=== PATIENT | male | born 1955 | race Caucasian/White ===

== ENCOUNTER 2019-05-15 22:13 | Inpatient (IN) ==
[2019-05-16] MEDS ORDERED: Naloxone 0.4 MG/ML INJ IVP PRN (02:37)
[2019-05-16] MEDS ORDERED: *HR* LORazepam 2 MG/ML VIAL IVP PRN (02:37)
[2019-05-16] MEDS ORDERED: 0.9 % Sodium Chloride 1,000 ML IVC SCH (02:45)
[2019-05-16 02:59] LABS: Basophils % 0.3 %; Eosinophils % 0.6 %; Hemoglobin 9.3 g/dL (12.9-16.9); Lymphocytes % 16.3 %; Mean Corpuscular HGB Conc 34.4 g/dL (31.6-35.5); Mean Corpuscular Hemoglobin 28.8 pg (28.0-33.3); Mean Corpuscular Volume 83.6 fL (83.0-100.0); Mean Platelet Volume 10.9 fL (9.4-12.4); Monocytes # 0.9 K/mcL (0.0-1.3); Monocytes % 14.7 %; Neutrophils # 4.2 K/mcL (1.6-8.9); Platelet Count 158 K/mcL (140-400); Red Blood Count 3.23 M/mcL (4.19-5.50); Red Cell Distribution Width 14.7 % (11.5-14.5); Segmented Neutrophils % 67.1 %; White Blood Count 6.3 K/mcL (4.3-11.1)
[2019-05-16 03:19] LABS: Albumin 3.1 g/dL (3.5-5.7); Albumin/Globulin Ratio 1.2 (1.1-2.2); Bilirubin,Total 0.3 mg/dL (0.3-1.0); Calcium 6.7 mg/dL (8.6-10.3); Globulin 2.6 g/dL (2.4-3.5); Magnesium 2.1 mg/dL (1.6-2.6); Phosphorous 5.8 mg/dL (2.7-4.5); Potassium 4.1 mEq/L (3.5-5.1); Total Protein 5.7 g/dL (6.4-8.9)
--- NOTE | 2019-05-16 09:13 | Internal Med History&Physical ---
Date of Encounter: 05/16/19 Time of Encounter: 08:54 Internal Medicine - H&P: HPI Chief complaint: Encephalopathy Admitted From: Home Plans for Post Hospital Care: Home History of present illness: Mr. Pickett is a 63 year old male with hx of past alcoholism and CKD (stage III?) who presents as a transfer from [facility] with encephalopathy and acute renal failure. Most of the history is gathered from chart review and patient - patient's sister who brought patient to the hospital could not be reached. Apparently patient has been working outside a lot in the hot sun and said he passed out at home and had several falls thereafter. Does not remember the falls. Has a hematoma on his head. Denies n/v or diarrhea/constipation. Questionable history of alcohol abuse but patient denies this. Also has been using a lot of Excedrin for chronic back pain and experiencing urinary hesitancy and frequency lately. Patient's sister was concerned about patient's falls and thought patient seemed confused so brought him to the ED at [facility]. At the ED, VSS. Cr 13.13. BUN 145. UA with moderate amount of blood but 0-2 RBCs and without evidence of infection or casts. CT head w/o acute changes. CT abd/pelvis with BL nonobstructing renal calculi and fecalith within appendix with inflammation suggesting early acute appendicitis (notably, no leukocytosis and non-tender abdomen). Past Med Surg Social Fam HX - Past Medical History Medical history: arthritis, GERD, hypertension Additional medical history: diverticulitis Psychiatric history: no psych history - Past Surgical History Additional surgical history: colonoscopy positive for polyps - Social History Smoking Status: Current some day smoker Smokeless Tobacco Status: No Alcohol use: none Drug use: other - Family History Mother Hx Family Cardiac Disorders: Yes Father Hx Family Cardiac Disorders: Yes Hx Family Neurologic Disorders: Yes (stroke) Internal Medicine - H&P: Meds Allergy/AdvReac Type Severity Reaction Status Date / Time No Known Allergies Allergy Verified 05/16/19 02:34 All Systems PM: A 10-system review of systems was performed and is negative for pertinent findings except as documented above in the HPI. Review of systems: General: Fevers / Chills / Weight loss / Night sweats Eyes: Blurry Vision / Change in Vision HENT: Ear Pain / Ear Drainage / Rhinorrhea / Throat Pain / Lymphadenopathy Cardiovascular: Chest Pain / Palpatations / Orthopnea / WINCHESTER / Weight gain Lungs: Dyspnea / Wheezing / Cough / Sputum production / Pleurisy Abdomen: Abdomen pain / Abdominal distention / Nausea / Vomiting / Diarrhea / Const : Dysuria / Urinary Frequency / Urinary Urgency / Hematuria Extremities: LE edema / Ext pain / Ext erythema Skin: Rashes / Abrasions / Contusions Psych: Hallucinations / Anxiety / Depression Neuro: Weakness / Numbness / Tingling / Facial Droop / Dysphagia - Constitutional Vitals: Temp Pulse Resp BP Pulse Ox 98.6 F 67 16 175/75 95 05/16/19 07:49 05/16/19 07:49 05/16/19 07:49 05/16/19 07:49 05/16/19 07:49 Exam: General: Ill-appearing and in no acute distress HEENT: No erythema of posterior pharynx. No exudates. Lymphatics: No mandibular or cervical lymphadenopathy Cardiovascular: RRR. No murmurs. No chest wall tenderness. Lungs: Clear to auscelltation bilaterally. Regular chest rise. Abdomen: Non-tender. No rebound or gaurding. Nl bowel sounds. Extremities: No edema. 2+ pulses radial and pedal pulses Skin: No rahses, abrasions, or contusions. Nl cap refill. Psych: Poor attention but A&Ox3 once aroused Neuro: egg tester II-XII intact. 5/5 strength. Sensation to light touch and pinprick intact. asterixis present Internal Med - H&P Results - Labs CBC & Chem 7: 05/16/19 02:49 05/16/19 02:49 Labs: Short CBC 05/16/19 Range/Units 02:49 WBC 6.3 (4.3-11.1) K/mcL Hgb 9.3 L (12.9-16.9) g/dL Hct 27.0 L (37.5-50.1) % Plt Count 158 (140-400) K/mcL Neutrophils # 4.2 (1.6-8.9) K/mcL BMP 05/16/19 02:49 Sodium 139 Potassium 4.1 Chloride 96 L Carbon Dioxide 24 BUN 123 H Creatinine 10.98 H Glucose 101 Calcium 6.7 L Cardiac Enzymes 05/16/19 Range/Units 02:49 Troponin I 0.08 H* (< 0.04) ng/mL Liver Function 05/16/19 Range/Units 02:49 Total Bilirubin 0.3 (0.3-1.0) mg/dL AST 14 (13-39) Units/L ALT 50 (7-52) Units/L Alkaline Phosphatase 61 (34-104) Units/L Albumin 3.1 L (3.5-5.7) g/dL - Assessment and Plan (1) Acute renal failure Current Visit: Yes Status: Acute Assessment and plan: Patient with hx of CKD (stage III?) presents with encephalopathy and acute renal failure in the setting of stable vitals, asterixis on physical exam, Cr of 13 that improved to 10 after 2L IVF, UA with moderate amount of blood but 0-2 RBCs and without evidence of infection or casts, and CT abd/pelvis with BL nonobstructing renal calculi and fecalith within appendix with inflammation suggesting early acute appendicitis (notably, no leukocytosis and non-tender abdomen). -Acute renal failure likely multifactorial: May have a prerenal component given has been outside working in the hot sun May have been intrarenal component given the history of Excedrin use/abuse. Also blood but no RBCs suggesting rhabdo - will check CK May have a postrenal component given he is endorsing BPH symptoms. Could have also passed an obstructing stone? Non-obst stones present on CT PLAN: - Continue IV hydration with IV NS@100ml/hr - Wan placed - close monitoring of urine output - Consult to nephrology - Repeat UA looking for casts - Mild confusion but no other indication for urgent HD Qualifiers: Acute renal failure type: unspecified Qualified Code(s): N17.9 - Acute kidney failure, unspecified (2) CKD (chronic kidney disease) stage 3, GFR 30-59 ml/min Current Visit: Yes Status: Acute Assessment and plan: Unclear baseline. Creatinine from 2016 1.5 which should be CKD stage III for this patient. (3) Encephalopathy Current Visit: Yes Status: Acute Assessment and plan: In the setting of uremia with BUN on admission 140 and asterixis on physical exam. - Treat acute renal failure per above (4) Frequent falls Current Visit: Yes Status: Acute Assessment and plan: Presumably secondary to contusion from uremia. - PT eval (5) Alcoholism Current Visit: Yes Status: Acute Assessment and plan: Unclear if this is a current issue. Patient says that he abuse alcohol the past but no alcohol abuse currently. - ROSI (6) Abnormal CT of the abdomen Current Visit: Yes Status: Acute Assessment and plan: Evidence of fecalith within appendix with inflammation suggesting early acute appendicitis on CT abd/pelvis (notably, no leukocytosis and non-tender abdomen). - Will run this by general surgery to see their level of concern for an acute process
[2019-05-16 09:53] LABS: Troponin I 0.08 ng/mL (< 0.04)
--- NOTE | 2019-05-16 10:33 | Nephrology Consult Note ---
Date of Encounter: 05/16/19 Time of Encounter: 10:00 Assessment and Plan (1) ERI (acute kidney injury) Current Visit: Yes Status: Acute Suspecting postrenal plus the NSAIDs he was taking and prerenal etiologies for the ERI from his outdoor work recently. Recommend 0.45% IVF at 100mL/hr. After the granados was placed his now making a large post-obstructive autodiuresis. Half-normal NS is better to prevent hypernatremia in such pt. He likely needs a granados catheter. I do not have immediate access to the CT abd that was performed at [facility], but if there was hydronephrosis, then he may also need a Urology consult. 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 He looks dry and primarily needs a granados to relieve the (probable) obstruction. This complex patient required a very high degree evaluation and management, as well as medical decision-making. Thank you for having consulted the [facility], and I will follow with you. Discussed with the hospitalist. (2) Alcoholism Current Visit: Yes Status: Acute (3) Frequent falls Current Visit: Yes Status: Acute (4) Urinary retention Current Visit: Yes Status: Acute (5) Anemia Current Visit: Yes Status: Acute Goal Hgb is 10-11: will monitor for any need of IV iron and /or EPO. Transfusion parameters as per primary Qualifiers: Anemia type: unspecified type Qualified Code(s): D64.9 - Anemia, unsp ecified (6) Elevated CK Current Visit: Yes Status: Acute in the 900s and will need to be trended. Less likely to be sole cause of an elevated SCr. Nevertheless, the goal is the same: continue IVF. History of Present Illness - Reason for Consult Consult date: 05/16/19 Acute Kidney Injury Requesting physician: Girma Ramirez - Chief Complaint ERI - History of Present Illness Pleasant 63-year-old male with a past medical history of hypertension, and reportedly no previous kidney disease who presented with a very elevated creatinine. Nephrology was consulted for management. The patient transferred in from an outside hospital, and once a Granados catheter was placed, per report, he has made significant urine output. He told me that over the last 2 weeks, especially the last week, he has had more difficulty with urination, which he described as being unable to empty his bladder. He affirmed taking [id number] NSAIDs, and working out in the heat doing yard work over the last few weeks. He said that he has had frequent falls, but he does not recall these falls, and he also drinks beer. No family members were present during my interview/exam. He did not report having nausea, vomiting, or diarrhea. He did not report previous renal stones or gout. He did not report other hospitalizations or IV contrast exposure, and he said that he has had a large palpable bump on his forehead for many years. He did not affirm rash, LUNA, dizziness, CP. Past Med Surg Social Fam HX - Past Medical History Medical history: arthritis, GERD, hypertension Additional medical history: diverticulitis Psychiatric history: no psych history - Past Surgical History Additional surgical history: colonoscopy positive for polyps - Social History Smoking Status: Current some day smoker Smokeless Tobacco Status: No Alcohol use: none Drug use: other - Family History Mother Hx Family Cardiac Disorders: Yes Father Hx Family Cardiac Disorders: Yes Hx Family Neurologic Disorders: Yes (stroke) Medications and Allergies No Known Home Drugs 05/16/19 [History] Allergy/AdvReac Type Severity Reaction Status Date / Time No Known Allergies Allergy Verified 05/16/19 10:36 Review of Systems All Systems: reviewed and no additional remarkable complaints except as stated Exam - Vital Signs Vital signs: Initial Vital Signs Pulse Ox 97 05/16/19 01:12 Vital Signs - Last 8 Hours Temp Pulse Resp BP Pulse Ox 05/16/19 07:49 98.6 F 67 16 175/75 95 05/16/19 03:42 98 F 72 17 184/76 94 Intake and Output 05/15/19 05/16/19 05/16/19 23:59 07:59 15:59 Output Total 900 / 900 Balance -900 / -900 Output: Urine 450 / 450 Catheter 450 / 450 Other: Weight 67.3 kg Patient Weight 05/16/19 23:59 Weight 67.3 kg - General Appearance General appearance: well-developed, appears started age, frail EENT: ATNC, PERRL, mucous membranes dry Neck: no JVD, supple Respiratory: no kyphosis, clear Cardiology: no murmurs, no edema, regular rate, regular rhythm, normal S1, normal S2 Gastrointestinal: normoactive bowel sounds, no tenderness, no guarding Integumentary: no rash, warm and dry Neurologic: no focal deficit, no asterixis, alert and oriented x3 Musculoskeletal: no erythema, no cyanosis Psychiatric: mood/affect appropriate, cooperative Results - Lab Results 05/16/19 02:49 05/16/19 02:49 Most recent lab results 05/16/19 02:49 Calcium 6.7 L Phosphorus 5.8 H Magnesium 2.1 Consult Discharge Plan - Plan Referrals: NONE,PCP [Primary Care Provider] -
--- NOTE | 2019-05-16 10:55 | Urology - Consult Note ---
<Berkley Block N - Last Filed: 05/16/19 10:50> Date of Encounter: 05/16/19 Time of Encounter: 10:20 - Assessment and Plan (1) Urinary retention Current Visit: Yes Status: Acute Assessment and plan: Patient is a 63-year-old male who presents the history of urinary retention. There was some initial concern for proper catheter placement secondary to decreased urine output. Patient is in acute renal failure, and urine output is now increased. Wan catheter appears to be properly positioned and sufficiently draining transparent, clear yellow urine. The primary team has initiated Flomax daily, and I explained patient will likely require an indwelling catheter for a minimum of [address] Amaya will be in to reevaluate patient later this afternoon. (2) Acute renal failure Current Visit: Yes Status: Acute Assessment and plan: Patient is a 63-year-old male who presents with a history of acute renal failure. Initial serum creatinine was 13, and it is currently 10.98. Nephrology has been consulted and suspects both prerenal and postrenal attributions. Urology recommends to continue with indwelling Wan catheter and Flomax daily. Qualifiers: Acute renal failure type: unspecified Qualified Code(s): N17.9 - Acute kidney failure, unspecified Urology CN:HPI Consult date: 05/16/19 Reason for consult Urology: Other (urinary retention) Requesting physician: Girma Ramirez History of present illness: Patient is a 63-year-old male who presents with a history of urinary retention, acute kidney injury and nonobstructive bilateral nephrolithiasis. Patient initially presented to [facility] after he experienced a syncopal episode and subsequent altered mental status. Patient sustained a hematoma to his anterior skull and was transferred to [facility] for further evaluation. Patient was found to have a markedly elevated serum creatinine of 13 as well as metabolic encephalopathy. Patient with questionable history of alcohol abuse. Patient underwent a CT of the abdomen and pelvis that was suggestive of a markedly distended bladder and nonobstructive bilateral nephrolithiasis. Currently, patient is sitting upright in bed in no apparent distress, and a Wan catheter is indwelling draining transparent, clear yellow urine into bedside bag. Patient reports no prior history of urinary retention, although, his brother is diagnosed with BPH and takes Flomax. He is not currently established with a urologist, and he denies any significant past history. He denies any known family history of prostate cancer. Patient reports he experiences occasional urinary hesitancy, weak stream and nocturia 2- 3 times per night at baseline. He denies any fever, chills, flank pain, urgency, frequency, incontinence, postvoid dribbling, dysuria or gross hematuria. Past Med Surg Social Fam HX - Past Medical History Medical history: arthritis, GERD, hypertension Additional medical history: diverticulitis Psychiatric history: no psych history - Past Surgical History Additional surgical history: colonoscopy positive for polyps - Social History Smoking Status: Current some day smoker Smokeless Tobacco Status: No Alcohol use: none Drug use: other - Family History Mother Hx Family Cardiac Disorders: Yes Father Hx Family Cardiac Disorders: Yes Hx Family Neurologic Disorders: Yes (stroke) Medications and Allergies No Known Home Drugs 05/16/19 [History] Allergy/AdvReac Type Severity Reaction Status Date / Time No Known Allergies Allergy Verified 05/16/19 10:36 Review of Systems - Constitutional no chills, no fatigue, no fever(s) - EENT Nose, mouth and throat: dizziness, no headache(s) - Cardiovascular no chest pain, no diaphoresis, no dyspnea - Respiratory no cough, no dyspnea - Gastrointestinal no abdominal pain, no nausea, no vomiting - Genitourinary change in urinary stream, difficulty urinating, nocturia, urinary hesitancy, no dysuria, no flank pain, no hematuria, no post void dribbling, no urinary frequency, no urinary incontinence, no urinary urgency - Musculoskeletal back pain, no muscle weakness - Integumentary no erythema, no rash - Neurological syncope, no confusion, no sensory deficit - Psychiatric no anxiety, no confusion - Hematologic/Lymphatic no easy bleeding, no easy bruising - Allergic/Immunologic no throat swelling, no wheezing Exam Initial Vital Signs Pulse Ox 97 05/16/19 01:12 - General physical appearance Present: no distress, no pain - Eyes Present: PERRL, normal ocular movement - ENT Present: normal nares, no congestion, decreased hearing - Neck Present: no masses, trachea midline, no lymphadenopathy - Respiratory Present: normal respiratory effort - Cardiovascular Cardiovascular exam IM: RRR - Abdomen Abdomen: Present: soft, non tender. Absent: distended - Genitourinary other (Awn catheter is indwelling and draining transparent, clear yellow urine into bedside bag.) - Integumentary Present: no rash, no abnormal pigmentation - Neurologic Present: normal coordination - Musculoskeletal Present: other (Normal posture) Urology Results - Labs 05/16/19 02:49 05/16/19 02:49 Abnormal lab results RBC 3.23 M/mcL (4.19-5.50) L 05/16/19 02:49 Hgb 9.3 g/dL (12.9-16.9) L 05/16/19 02:49 Hct 27.0 % (37.5-50.1) L 05/16/19 02:49 RDW 14.7 % (11.5-14.5) H 05/16/19 02:49 Chloride 96 mEq/L (98-107) L 05/16/19 02:49 BUN 123 mg/dL (8-23) H 05/16/19 02:49 Creatinine 10.98 mg/dL (0.70-1.30) H 05/16/19 02:49 Est GFR ( Amer) 6 (> 60) L 05/16/19 02:49 Est GFR (Non-Af Amer) 5 (> 60) L 05/16/19 02:49 Calculated Osmolality 328 (280-300) H 05/16/19 02:49 Calcium 6.7 mg/dL (8.6-10.3) L 05/16/19 02:49 Phosphorus 5.8 mg/dL (2.7-4.5) H 05/16/19 02:49 Creatine Kinase 991 Units/L (30-223) H 05/16/19 09:00 Troponin I 0.08 ng/mL (< 0.04) H* 05/16/19 09:00 Serum Total Protein 5.7 g/dL (6.4-8.9) L 05/16/19 02:49 Albumin 3.1 g/dL (3.5-5.7) L 05/16/19 02:49 Diabetes panel 05/16/19 Range/Units 02:49 Sodium 139 (136-145) mEq/L Potassium 4.1 (3.5-5.1) mEq/L Chloride 96 L (98-107) mEq/L Carbon Dioxide 24 (23-29) mEq/L BUN 123 H (8-23) mg/dL Creatinine 10.98 H (0.70-1.30) mg/dL Glucose 101 (70-105) mg/dL Calcium 6.7 L (8.6-10.3) mg/dL AST 14 (13-39) Units/L ALT 50 (7-52) Units/L Alkaline Phosphatase 61 (34-104) Units/L Albumin 3.1 L (3.5-5.7) g/dL Calcium panel 05/16/19 Range/Units 02:49 Calcium 6.7 L (8.6-10.3) mg/dL Phosphorus 5.8 H (2.7-4.5) mg/dL Albumin 3.1 L (3.5-5.7) g/dL Pituitary panel 05/16/19 Range/Units 02:49 Sodium 139 (136-145) mEq/L Potassium 4.1 (3.5-5.1) mEq/L Chloride 96 L (98-107) mEq/L Carbon Dioxide 24 (23-29) mEq/L BUN 123 H (8-23) mg/dL Creatinine 10.98 H (0.70-1.30) mg/dL Glucose 101 (70-105) mg/dL Calcium 6.7 L (8.6-10.3) mg/dL Adrenal panel 05/16/19 Range/Units 02:49 Sodium 139 (136-145) mEq/L Potassium 4.1 (3.5-5.1) mEq/L Chloride 96 L (98-107) mEq/L Carbon Dioxide 24 (23-29) mEq/L BUN 123 H (8-23) mg/dL Creatinine 10.98 H (0.70-1.30) mg/dL Glucose 101 (70-105) mg/dL Calcium 6.7 L (8.6-10.3) mg/dL Total Bilirubin 0.3 (0.3-1.0) mg/dL AST 14 (13-39) Units/L ALT 50 (7-52) Units/L Alkaline Phosphatase 61 (34-104) Units/L Albumin 3.1 L (3.5-5.7) g/dL All other labs normal. - Imaging CT scan - abdomen: image reviewed CT scan - pelvis: image reviewed Consult Discharge Plan - Plan Referrals: NONE,PCP [Primary Care Provider] - <Manuel Amaya - Last Filed: 05/16/19 13:35> Date of Encounter: 05/16/19 Urology CN:RAYMOND History of present illness: Patient was seen and examined independently. I agree with the plan as written by Berkley Block. At this point, continue with catheter drainage at this time. No indication to clamp catheter for postobstructive diuresis. We will continue to follow along closely. Serum creatinine tomorrow. Exam Initial Vital Signs Pulse Ox 97 05/16/19 01:12 Urology Results - Labs 05/16/19 02:49 05/16/19 02:49 Abnormal lab results RBC 3.23 M/mcL (4.19-5.50) L 05/16/19 02:49 Hgb 9.3 g/dL (12.9-16.9) L 05/16/19 02:49 Hct 27.0 % (37.5-50.1) L 05/16/19 02:49 RDW 14.7 % (11.5-14.5) H 05/16/19 02:49 Chloride 96 mEq/L (98-107) L 05/16/19 02:49 BUN 123 mg/dL (8-23) H 05/16/19 02:49 Creatinine 10.98 mg/dL (0.70-1.30) H 05/16/19 02:49 Est GFR ( Amer) 6 (> 60) L 05/16/19 02:49 Est GFR (Non-Af Amer) 5 (> 60) L 05/16/19 02:49 Calculated Osmolality 328 (280-300) H 05/16/19 02:49 Calcium 6.7 mg/dL (8.6-10.3) L 05/16/19 02:49 Phosphorus 5.8 mg/dL (2.7-4.5) H 05/16/19 02:49 Creatine Kinase 991 Units/L (30-223) H 05/16/19 09:00 Troponin I 0.08 ng/mL (< 0.04) H* 05/16/19 09:00 Serum Total Protein 5.7 g/dL (6.4-8.9) L 05/16/19 02:49 Albumin 3.1 g/dL (3.5-5.7) L 05/16/19 02:49 Diabetes panel 05/16/19 Range/Units 02:49 Sodium 139 (136-145) mEq/L Potassium 4.1 (3.5-5.1) mEq/L Chloride 96 L (98-107) mEq/L Carbon Dioxide 24 (23-29) mEq/L BUN 123 H (8-23) mg/dL Creatinine 10.98 H (0.70-1.30) mg/dL Glucose 101 (70-105) mg/dL Calcium 6.7 L (8.6-10.3) mg/dL AST 14 (13-39) Units/L ALT 50 (7-52) Units/L Alkaline Phosphatase 61 (34-104) Units/L Albumin 3.1 L (3.5-5.7) g/dL Calcium panel 05/16/19 Range/Units 02:49 Calcium 6.7 L (8.6-10.3) mg/dL Phosphorus 5.8 H (2.7-4.5) mg/dL Albumin 3.1 L (3.5-5.7) g/dL Pituitary panel 05/16/19 Range/Units 02:49 Sodium 139 (136-145) mEq/L Potassium 4.1 (3.5-5.1) mEq/L Chloride 96 L (98-107) mEq/L Carbon Dioxide 24 (23-29) mEq/L BUN 123 H (8-23) mg/dL Creatinine 10.98 H (0.70-1.30) mg/dL Glucose 101 (70-105) mg/dL Calcium 6.7 L (8.6-10.3) mg/dL Adrenal panel 05/16/19 Range/Units 02:49 Sodium 139 (136-145) mEq/L Potassium 4.1 (3.5-5.1) mEq/L Chloride 96 L (98-107) mEq/L Carbon Dioxide 24 (23-29) mEq/L BUN 123 H (8-23) mg/dL Creatinine 10.98 H (0.70-1.30) mg/dL Glucose 101 (70-105) mg/dL Calcium 6.7 L (8.6-10.3) mg/dL Total Bilirubin 0.3 (0.3-1.0) mg/dL AST 14 (13-39) Units/L ALT 50 (7-52) Units/L Alkaline Phosphatase 61 (34-104) Units/L Albumin 3.1 L (3.5-5.7) g/dL All other labs normal.
[2019-05-16] MEDS: *HR* Heparin 5,000 UNIT/ML VIAL SQ SCH (20:12)
[2019-05-17 01:39] LABS: Bilirubin,Urine Negative (Negative); Blood,Urine Small (Negative); Clarity,Urine Clear (Clear); Color,Urine Yellow (Yellow); Glucose,Urine (UA) Normal (Normal); Ketones,Urine Negative (Negative); Leukocyte Esterase,Urine Negative (Negative); Nitrite,Urine Negative (Negative); Protein,Urine 30 mg/dL (Neg-Trace); Specific Gravity,Urine 1.014 (1.010-1.025); Urobilinogen,Urine Normal (Normal)
[2019-05-17 01:41] LABS: Bacteria,Urine None Seen per hpf (None-Few); Hyaline Casts,Urine None Seen per lpf (None-Few); Squamous Epithelial Cell,Urine Few per lpf (None-Few); WBC,Urine 0-3 per hpf (0-3)
[2019-05-17] MEDS: *HR* Heparin 5,000 UNIT/ML VIAL SQ SCH ×2 (05:26→16:24)
[2019-05-17 06:46] LABS: Albumin 2.9 g/dL (3.5-5.7); Calcium 6.9 mg/dL (8.6-10.3); Magnesium 1.7 mg/dL (1.6-2.6); Potassium 2.9 mEq/L (3.5-5.1)
[2019-05-17 06:55] LABS: Hepatitis B Surface Antigen Nonreactive (Nonreactive)
[2019-05-17] MEDS ORDERED: Potassium Chloride Elixir 20 MEQ/15 ML UDC PO SCH ×2 (06:57→09:00)
[2019-05-17 07:23] LABS: Hepatitis C Virus Antibody Nonreactive (Nonreactive)
--- NOTE | 2019-05-17 07:28 | Internal Med Progress Note ---
Hospitalist Progress Note - Encounter Date of Encounter: 05/17/19 Time of Encounter: 09:00 - Subjective Interval History: No acute events overnight - Exam Vitals: Temp Pulse Resp BP Pulse Ox 97.6 F 73 17 161/87 96 05/17/19 04:33 05/17/19 04:33 05/17/19 04:33 05/17/19 04:33 05/17/19 04:33 Exam: General:no acute distress HEENT: No erythema of posterior pharynx. No exudates. Lymphatics: No mandibular or cervical lymphadenopathy Cardiovascular: RRR. No murmurs. No chest wall tenderness. Lungs: Clear to auscelltation bilaterally. Regular chest rise. Abdomen: Non-tender. No rebound or gaurding. Nl bowel sounds. Extremities: No edema. 2+ pulses radial and pedal pulses Skin: No rahses, abrasions, or contusions. Nl cap refill. Psych: Poor attention but A&Ox3 once aroused Neuro: collar cutter II-XII intact. 5/5 strength. Sensation to light touch and pinprick intact. asterixis present - Assessment and Plan (1) Acute renal failure Current Visit: Yes Status: Acute Assessment and Plan: Patient with hx of CKD (stage III?) presents with encephalopathy and acute renal failure in the setting of stable vitals, Pt has acute renal failure with multifactorial causes- dehydration, NSAID use, post renal obstruction Continue IV fluids. Wan in place. Creatinine improving Renal and urology on board (2) CKD (chronic kidney disease) stage 3, GFR 30-59 ml/min Current Visit: Yes Status: Acute Assessment and Plan: ERI on CKD stage 3. Continue IV fluids (3) Encephalopathy Current Visit: Yes Status: Acute Assessment and Plan: In the setting of uremia with BUN on admission 140 and asterixis on physical exam. Continue IV fluids. Pt's mental status improved this am (4) Frequent falls Current Visit: Yes Status: Acute Assessment and Plan: Possibly secondary to confusion from uremia. - PT eval (5) Alcoholism Current Visit: Yes Status: Acute Assessment and Plan: Unclear if this is a current issue. Patient says that he abuse alcohol the past but no alcohol abuse currently. - CIWA (6) Abnormal CT of the abdomen Current Visit: Yes Status: Acute Assessment and Plan: Evidence of fecalith within appendix with inflammation suggesting early acute appendicitis on CT abd/pelvis (notably, no leukocytosis and non-tender abdomen). - Will run this by general surgery to see their level of concern for an acute process DVT Prophylaxis: Heparin sc - Time Spent with Patient Total time spent is greater than 50% in coordination of care (as documented) at patient's floor/unit and/or counseling patient: Internal Medicine: Result - Labs CBC & Chem 7: 05/16/19 02:49 05/17/19 05:37 Labs: BMP 05/17/19 05:37 Sodium 139 Potassium 2.9 L Chloride 99 Carbon Dioxide 23 BUN 88 H Creatinine 6.66 H Glucose 112 H Calcium 6.9 L Cardiac Enzymes 05/16/19 05/16/19 Range/Units 09:00 15:26 Troponin I 0.08 H* 0.06 H* (< 0.04) ng/mL Liver Function 05/17/19 Range/Units 05:37 Albumin 2.9 L (3.5-5.7) g/dL Urine 05/17/19 Range/Units 01:27 Urine Color Yellow (Yellow) Urine Clarity Clear (Clear) Urine pH 6.0 (5.0-8.0) pH Units Ur Specific [place] 1.014 (1.010-1.025) Urine Protein 30 H (Neg-Trace) mg/dL Urine Glucose (UA) Normal (Normal) mg/dL Consult Discharge Plan - Plan Referrals: NONE,PCP [Primary Care Provider] - (1) Acute renal failure Qualifiers: Acute renal failure type: unspecified Qualified Code(s): N17.9 - Acute kidney failure, unspecified
--- NOTE | 2019-05-17 08:20 | Urology Progress Note ---
<Berkley Block N - Last Filed: 05/17/19 08:16> Date of Encounter: 05/17/19 Time of Encounter: 07:50 - Assessment and Plan (1) Urinary retention Current Visit: Yes Status: Acute Assessment and plan: Patient is a 63-year-old male who presents the history of urinary retention. Patient has been taking Flomax daily, and he is aware that he will require an indwelling Wan catheter for a minimum of 1 week. We will plan to see Mr. Pickett within 1-2 weeks of discharge for a possible voiding trial. (2) Acute renal failure Current Visit: Yes Status: Acute Assessment and plan: Patient is a 63-year-old male who presents the history of acute renal failure. Serum creatinine is improving from 10.90 yesterday to 6.66 today. Qualifiers: Acute renal failure type: unspecified Qualified Code(s): N17.9 - Acute kidney failure, unspecified Progress Note Narrative: Patient seen and examined in the upright in bed eating breakfast in no apparent distress. Wan catheter is indwelling and draining transparent, clear yellow urine into bedside bag. Patient reports no new urologic concerns. Objective Initial Vital Signs Pulse Ox 97 05/16/19 01:12 - General physical appearance Present: no distress, no pain - Respiratory Present: normal expansion, normal respiratory effort - Abdomen Present: soft, non tender. Absent: distended - Genitourinary Urine Appearance: Present: Clear - Integumentary Present: no rash, no abnormal pigmentation - Musculoskeletal Present: normal posture - Psychiatric Present: oriented to time, oriented to person, oriented to place, speech is normal, memory intact - Labs 05/16/19 02:49 05/17/19 05:37 Diabetes panel 05/17/19 Range/Units 05:37 Sodium 139 (136-145) mEq/L Potassium 2.9 L (3.5-5.1) mEq/L Chloride 99 (98-107) mEq/L Carbon Dioxide 23 (23-29) mEq/L BUN 88 H (8-23) mg/dL Creatinine 6.66 H (0.70-1.30) mg/dL Glucose 112 H (70-105) mg/dL Calcium 6.9 L (8.6-10.3) mg/dL Albumin 2.9 L (3.5-5.7) g/dL Calcium panel 05/17/19 05/17/19 Range/Units 05:37 05:37 Calcium 6.9 L (8.6-10.3) mg/dL Phosphorus 4.0 (2.7-4.5) mg/dL Albumin 2.9 L (3.5-5.7) g/dL Pituitary panel 05/17/19 Range/Units 05:37 Sodium 139 (136-145) mEq/L Potassium 2.9 L (3.5-5.1) mEq/L Chloride 99 (98-107) mEq/L Carbon Dioxide 23 (23-29) mEq/L BUN 88 H (8-23) mg/dL Creatinine 6.66 H (0.70-1.30) mg/dL Glucose 112 H (70-105) mg/dL Calcium 6.9 L (8.6-10.3) mg/dL Adrenal panel 05/17/19 Range/Units 05:37 Sodium 139 (136-145) mEq/L Potassium 2.9 L (3.5-5.1) mEq/L Chloride 99 (98-107) mEq/L Carbon Dioxide 23 (23-29) mEq/L BUN 88 H (8-23) mg/dL Creatinine 6.66 H (0.70-1.30) mg/dL Glucose 112 H (70-105) mg/dL Calcium 6.9 L (8.6-10.3) mg/dL Albumin 2.9 L (3.5-5.7) g/dL Consult Discharge Plan - Plan Referrals: NONE,PCP [Primary Care Provider] - <Manuel Amaya - Last Filed: 05/18/19 07:51> Date of Encounter: 05/18/19 Progress Note Narrative: Patient was seen and examined the evening of May 17. I agree with the plan as written by Berkley Block. Patient serum creatinine continues to improve . Good urine output. If patient serum creatinine continues to improve okay to discharge from urology standpoint with catheter in place. Objective Initial Vital Signs Pulse Ox 97 05/16/19 01:12 - Labs 05/18/19 04:41 05/18/19 04:41 Diabetes panel 05/17/19 05/18/19 Range/Units 16:17 04:41 Sodium 136 (136-145) mEq/L Potassium 3.3 L 3.1 L (3.5-5.1) mEq/L Chloride 104 (98-107) mEq/L Carbon Dioxide 20 L (23-29) mEq/L BUN 66 H (8-23) mg/dL Creatinine 4.06 H (0.70-1.30) mg/dL Glucose 101 (70-105) mg/dL Calcium 6.7 L (8.6-10.3) mg/dL Calcium panel 05/18/19 05/18/19 Range/Units 04:41 04:41 Calcium 6.7 L (8.6-10.3) mg/dL Phosphorus 2.2 L (2.7-4.5) mg/dL Pituitary panel 05/17/19 05/18/19 Range/Units 16:17 04:41 Sodium 136 (136-145) mEq/L Potassium 3.3 L 3.1 L (3.5-5.1) mEq/L Chloride 104 (98-107) mEq/L Carbon Dioxide 20 L (23-29) mEq/L BUN 66 H (8-23) mg/dL Creatinine 4.06 H (0.70-1.30) mg/dL Glucose 101 (70-105) mg/dL Calcium 6.7 L (8.6-10.3) mg/dL Adrenal panel 05/17/19 05/18/19 Range/Units 16:17 04:41 Sodium 136 (136-145) mEq/L Potassium 3.3 L 3.1 L (3.5-5.1) mEq/L Chloride 104 (98-107) mEq/L Carbon Dioxide 20 L (23-29) mEq/L BUN 66 H (8-23) mg/dL Creatinine 4.06 H (0.70-1.30) mg/dL Glucose 101 (70-105) mg/dL Calcium 6.7 L (8.6-10.3) mg/dL
--- NOTE | 2019-05-17 11:19 | Nephrology Progress Note ---
Date of Encounter: 05/17/19 Time of Encounter: 11:14 - Assessment and Plan (1) ERI (acute kidney injury) Current Visit: Yes Status: Acute Scr 6.66, down from 10.98 GFR 8, was 5 Robust UOP No indication for LEGAL DOCUMENT ASSISTANT at this time (2) Hypokalemia Current Visit: Yes Status: Acute Extreme UOP-had 3350ml yesterday and already has 1250ml out today Two doses of K+ 40meq has been given Recheck K+ later this afternoon (3) Urinary retention Current Visit: Yes Status: Acute per urology team (4) Elevated CK Current Visit: Yes Status: Acute Was 991, now 484 Subjective Principal diagnosis: ERI, hypokalemia Interval history: Patient was seen and examined; sleeping soundly Objective - Vital Signs Vital signs: Vital Signs Temp Pulse Resp BP Pulse Ox 05/17/19 07:40 98.0 F 92 18 173/87 96 05/17/19 04:33 97.6 F 73 17 161/87 96 05/17/19 00:49 168/88 05/17/19 00:29 97.9 F 70 15 191/99 95 05/16/19 21:26 96 05/16/19 19:23 97.9 F 72 16 156/87 96 05/16/19 16:26 98.2 F 73 17 163/83 95 05/16/19 11:48 97.6 F 72 16 159/69 93 Intake and Output 05/16/19 05/17/19 05/17/19 23:59 07:59 15:59 Intake Total 1000 / 2240 0 / 1000 1000 / 1000 Output Total 1550 / 3350 1250 / 1250 0 / 1250 Balance -550 / -1110 -1250 / -250 1000 / -250 Intake: IV Fluids 1000 / 2000 1000 / 1000 0.45% Sodium Chloride 1,000 ML 1000 / 1000 1000 / 1000 @ 100 mls/hr IVC .Q10H [facility] Rx#: [id number] Oral 0 / 0 0 / 0 Output: Urine 0 / 0 0 / 0 Catheter 1550 / 2900 1250 / 1250 - General Appearance General appearance: Present: chronically ill EENT: Present: ATNC Neck: Present: supple Respiratory: Present: clear Cardiology: Present: no edema, normal S1, normal S2 Gastrointestinal: Present: no tenderness, no guarding Integumentary: Present: warm and dry - Lab 05/16/19 02:49 05/17/19 05:37 Most recent lab results 05/17/19 05/17/19 05:37 05:37 Calcium 6.9 L Phosphorus 4.0 Magnesium 1.7 Consult Discharge Plan - Plan Referrals: NONE,PCP [Primary Care Provider] -
[2019-05-17] MEDS ORDERED: Potassium Chloride Elixir 20 MEQ/15 ML UDC PO ONE (17:16)
[2019-05-18] MEDS: *HR* Heparin 5,000 UNIT/ML VIAL SQ SCH ×2 (05:14→17:55)
[2019-05-18 05:23] LABS: Basophils % 0.1 %; Eosinophils % 0.6 %; Hematocrit 29.1 % (37.5-50.1); Hemoglobin 9.7 g/dL (12.9-16.9); Immature Granulocytes % 1.1 % (0-4); Lymphocytes % 14.7 %; Mean Corpuscular HGB Conc 33.3 g/dL (31.6-35.5); Mean Corpuscular Volume 87.1 fL (83.0-100.0); Mean Platelet Volume 11.7 fL (9.4-12.4); Monocytes # 0.5 K/mcL (0.0-1.3); Monocytes % 7.4 %; Neutrophils # 5.4 K/mcL (1.6-8.9); Platelet Count 180 K/mcL (140-400); Red Blood Count 3.34 M/mcL (4.19-5.50); Red Cell Distribution Width 14.6 % (11.5-14.5); Segmented Neutrophils % 76.1 %
[2019-05-18 05:44] LABS: Magnesium 1.3 mg/dL (1.6-2.6); Phosphorous 2.2 mg/dL (2.7-4.5)
[2019-05-18 05:46] LABS: Calcium 6.7 mg/dL (8.6-10.3); Potassium 3.1 mEq/L (3.5-5.1)
[2019-05-18] MEDS ORDERED: Potassium Phosphate 44 MEQ in 0.9 % Sodium Chloride 250 ML IVPB ONE (07:50)
[2019-05-18] MEDS ORDERED: Calcium Gluconate 2,000 MG in 0.9 % Sodium Chloride 100 ML IVPB ONE (07:53)
[2019-05-18] MEDS ORDERED: Potassium Chloride Elixir 20 MEQ/15 ML UDC PO SCH (08:00)
--- NOTE | 2019-05-18 08:02 | Internal Med Progress Note ---
Hospitalist Progress Note - Encounter Date of Encounter: 05/18/19 Time of Encounter: 09:00 - Subjective Interval History: No acute events overnight - Exam Vitals: Temp Pulse Resp BP Pulse Ox 98.8 F 65 18 172/92 97 05/18/19 07:33 05/18/19 07:33 05/18/19 07:33 05/18/19 07:33 05/18/19 07:33 Exam: General:no acute distress HEENT: No erythema of posterior pharynx. No exudates. Lymphatics: No mandibular or cervical lymphadenopathy Cardiovascular: RRR. No murmurs. No chest wall tenderness. Lungs: Clear to auscelltation bilaterally. Regular chest rise. Abdomen: Non-tender. No rebound or gaurding. Nl bowel sounds. Extremities: No edema. 2+ pulses radial and pedal pulses Skin: No rahses, abrasions, or contusions. Nl cap refill. Psych: Poor attention but A&Ox3 once aroused Neuro: pillowcase cutter II-XII intact. 5/5 strength. Sensation to light touch and pinprick intact. asterixis present - Assessment and Plan (1) Acute renal failure Current Visit: Yes Status: Acute Assessment and Plan: Patient with hx of CKD (stage III?) presents with encephalopathy and acute renal failure in the setting of stable vitals, Pt has acute renal failure with multifactorial causes- dehydration, NSAID use, post renal obstruction with urinary retention Continue IV fluids and flomax. Wan in place. Creatinine improving Outpatient follow up with urology for voiding trial (2) CKD (chronic kidney disease) stage 3, GFR 30-59 ml/min Current Visit: Yes Status: Acute Assessment and Plan: ERI on CKD stage 3. Continue IV fluids (3) Encephalopathy Current Visit: Yes Status: Acute Assessment and Plan: In the setting of uremia with BUN on admission 140 and asterixis on physical exam. Continue IV fluids. Pt's mental status has improved and asterixis has resolved (4) Frequent falls Current Visit: Yes Status: Acute Assessment and Plan: Possibly secondary to confusion from uremia. - PT eval (5) Alcoholism Current Visit: Yes Status: Acute Assessment and Plan: Unclear if this is a current issue. Patient says that he abuse alcohol the past but no alcohol abuse currently. - CIWA (6) Electrolyte abnormality Current Visit: Yes Status: Acute Assessment and Plan: Pt has hypokalemia, hypomagnesemia and hypocalcemia which were replaced DVT Prophylaxis: Heparin sc - Time Spent with Patient Total time spent is greater than 50% in coordination of care (as documented) at patient's floor/unit and/or counseling patient: Internal Medicine: Result - Labs CBC & Chem 7: 05/18/19 04:41 05/18/19 04:41 Labs: Short CBC 05/18/19 Range/Units 04:41 WBC 7.0 (4.3-11.1) K/mcL Hgb 9.7 L (12.9-16.9) g/dL Hct 29.1 L (37.5-50.1) % Plt Count 180 (140-400) K/mcL Neutrophils # 5.4 (1.6-8.9) K/mcL BMP 05/17/19 05/18/19 16:17 04:41 Sodium 136 Potassium 3.3 L 3.1 L Chloride 104 Carbon Dioxide 20 L BUN 66 H Creatinine 4.06 H Glucose 101 Calcium 6.7 L Consult Discharge Plan - Plan Referrals: NONE,PCP [Primary Care Provider] - (1) Acute renal failure Qualifiers: Acute renal failure type: unspecified Qualified Code(s): N17.9 - Acute kidney failure, unspecified
--- NOTE | 2019-05-18 09:13 | Urology Progress Note ---
<Berkley Block N - Last Filed: 05/18/19 09:10> Date of Encounter: 05/18/19 Time of Encounter: 08:00 - Assessment and Plan (1) Urinary retention Current Visit: Yes Status: Acute Assessment and plan: Patient is a 63-year-old male who presents the history of urinary retention. Wan catheter is indwelling and draining sufficiently. Patient will continue with daily Flomax, and he would be discharged with an indwelling Wan catheter. Nursing staff to please provide catheter care instructions as well as a leg bag with straps up on discharge. He is scheduled with Dr. Amaya for an outpatient voiding trial on 06/05/2019 at 10:15 AM. (2) Acute renal failure Current Visit: Yes Status: Acute Assessment and plan: Patient is a 63-year-old male who presents with acute renal failure. Serum creatinine is improved to 4.06 from 10.98 on admission. At this time, urology will sign off, but we are always available as needed. Qualifiers: Acute renal failure type: unspecified Qualified Code(s): N17.9 - Acute kidney failure, unspecified Progress Note Narrative: Patient seen and examined sitting upright in bed in no apparent distressed eating breakfast. His catheter is indwelling and draining transparent, clear yellow urine into bedside bag. Objective Initial Vital Signs Pulse Ox 97 05/16/19 01:12 - General physical appearance Present: no distress, no pain - Respiratory Present: normal expansion, normal respiratory effort - Abdomen Present: soft, non tender. Absent: distended - Genitourinary Urine Appearance: Present: Clear - Integumentary Present: no rash, no abnormal pigmentation - Musculoskeletal Present: normal posture - Psychiatric Present: oriented to time, oriented to person, oriented to place, speech is normal, memory intact - Labs 05/18/19 04:41 05/18/19 04:41 Diabetes panel 05/17/19 05/18/19 Range/Units 16:17 04:41 Sodium 136 (136-145) mEq/L Potassium 3.3 L 3.1 L (3.5-5.1) mEq/L Chloride 104 (98-107) mEq/L Carbon Dioxide 20 L (23-29) mEq/L BUN 66 H (8-23) mg/dL Creatinine 4.06 H (0.70-1.30) mg/dL Glucose 101 (70-105) mg/dL Calcium 6.7 L (8.6-10.3) mg/dL Calcium panel 05/18/19 05/18/19 Range/Units 04:41 04:41 Calcium 6.7 L (8.6-10.3) mg/dL Phosphorus 2.2 L (2.7-4.5) mg/dL Pituitary panel 05/17/19 05/18/19 Range/Units 16:17 04:41 Sodium 136 (136-145) mEq/L Potassium 3.3 L 3.1 L (3.5-5.1) mEq/L Chloride 104 (98-107) mEq/L Carbon Dioxide 20 L (23-29) mEq/L BUN 66 H (8-23) mg/dL Creatinine 4.06 H (0.70-1.30) mg/dL Glucose 101 (70-105) mg/dL Calcium 6.7 L (8.6-10.3) mg/dL Adrenal panel 05/17/19 05/18/19 Range/Units 16:17 04:41 Sodium 136 (136-145) mEq/L Potassium 3.3 L 3.1 L (3.5-5.1) mEq/L Chloride 104 (98-107) mEq/L Carbon Dioxide 20 L (23-29) mEq/L BUN 66 H (8-23) mg/dL Creatinine 4.06 H (0.70-1.30) mg/dL Glucose 101 (70-105) mg/dL Calcium 6.7 L (8.6-10.3) mg/dL Consult Discharge Plan - Plan Referrals: NONE,PCP [Primary Care Provider] - <Manuel Amaya - Last Filed: 05/18/19 18:29> Date of Encounter: 05/18/19 Progress Note Subjective: hematuria Narrative: Patient was seen and examined independently. Agree with the plan as written by Berkley Block. Patient serum creatinine improving. We will make follow-up merel ointment. Objective Initial Vital Signs Pulse Ox 97 05/16/19 01:12 - Labs 05/18/19 04:41 05/18/19 13:52 Diabetes panel 05/18/19 05/18/19 Range/Units 04:41 13:52 Sodium 136 (136-145) mEq/L Potassium 3.1 L 4.3 D (3.5-5.1) mEq/L Chloride 104 (98-107) mEq/L Carbon Dioxide 20 L (23-29) mEq/L BUN 66 H (8-23) mg/dL Creatinine 4.06 H (0.70-1.30) mg/dL Glucose 101 (70-105) mg/dL Calcium 6.7 L (8.6-10.3) mg/dL Calcium panel 05/18/19 05/18/19 Range/Units 04:41 04:41 Calcium 6.7 L (8.6-10.3) mg/dL Phosphorus 2.2 L (2.7-4.5) mg/dL Pituitary panel 05/18/19 05/18/19 Range/Units 04:41 13:52 Sodium 136 (136-145) mEq/L Potassium 3.1 L 4.3 D (3.5-5.1) mEq/L Chloride 104 (98-107) mEq/L Carbon Dioxide 20 L (23-29) mEq/L BUN 66 H (8-23) mg/dL Creatinine 4.06 H (0.70-1.30) mg/dL Glucose 101 (70-105) mg/dL Calcium 6.7 L (8.6-10.3) mg/dL Adrenal panel 05/18/19 05/18/19 Range/Units 04:41 13:52 Sodium 136 (136-145) mEq/L Potassium 3.1 L 4.3 D (3.5-5.1) mEq/L Chloride 104 (98-107) mEq/L Carbon Dioxide 20 L (23-29) mEq/L BUN 66 H (8-23) mg/dL Creatinine 4.06 H (0.70-1.30) mg/dL Glucose 101 (70-105) mg/dL Calcium 6.7 L (8.6-10.3) mg/dL
--- NOTE | 2019-05-18 09:47 | Nephrology Progress Note ---
Date of Encounter: 05/18/19 Time of Encounter: 09:47 - Assessment and Plan (1) ERI (acute kidney injury) Current Visit: Yes Status: Acute Scr improving. Robust UOP No indication for SCHOOL BUSINESS ADMINISTRATOR at this time Will sign off. Call with questions or concerns. Follow up with nephrology 1-3 months after discharge. (2) Urinary retention Current Visit: Yes Status: Acute (3) Elevated CK Current Visit: Yes Status: Acute (4) Hypokalemia Current Visit: Yes Status: Acute Subjective Principal diagnosis: ERI, hypokalemia Interval history: Mr. Pickett is asleep. No new reports. Objective - Vital Signs Vital signs: Vital Signs Temp Pulse Resp BP Pulse Ox 05/18/19 07:33 98.8 F 65 18 172/92 97 05/18/19 04:08 99.0 F 75 16 166/90 96 05/18/19 00:16 97.9 F 79 10 171/92 97 05/17/19 19:41 97 05/17/19 18:33 99.0 F 73 12 170/92 97 05/17/19 16:55 97.7 F 82 15 160/86 96 05/17/19 12:16 97.8 F 86 14 157/89 95 Intake and Output 05/17/19 05/18/19 05/18/19 23:59 07:59 15:59 Intake Total 1000 / 2340 Output Total 2099 / 2099 Balance 1000 / 390 -2100 / -2100 Intake: IV Fluids 1000 / 2100 0.45% Sodium Chloride 1,000 ML 1000 / 2000 @ 100 mls/hr IVC .Q10H [facility] Rx#: [id number] Output: Catheter 2099 - General Appearance General appearance: Present: well-developed, well-nourished EENT: Present: ATNC Neck: Present: supple Cardiology: Present: regular rate - Lab 05/18/19 04:41 05/18/19 13:52 Most recent lab results 05/18/19 05/18/19 04:41 04:41 Calcium 6.7 L Phosphorus 2.2 L Magnesium 1.3 L Consult Discharge Plan - Plan Referrals: NONE,PCP [Primary Care Provider] -
[2019-05-18] MEDS: Acetaminophen 325 MG TABLET PO PRN ×2 (12:22→20:23)
[2019-05-18] MEDS: *HR* OxyCODONE/APAP 5/325 TABLET PO PRN (16:02)
[2019-05-19] MEDS: *HR* Heparin 5,000 UNIT/ML VIAL SQ SCH ×2 (05:36→18:25)
[2019-05-19] MEDS: *HR* OxyCODONE/APAP 5/325 TABLET PO PRN ×2 (05:36→15:59)
[2019-05-19 07:41] LABS: Basophils % 0.1 %; Eosinophils % 0.5 %; Hematocrit 30.6 % (37.5-50.1); Hemoglobin 10.1 g/dL (12.9-16.9); Immature Granulocytes % 1.1 % (0-4); Lymphocytes # 1.3 K/mcL (0.6-4.6); Lymphocytes % 17.1 %; Mean Corpuscular Hemoglobin 29.1 pg (28.0-33.3); Mean Corpuscular Volume 88.2 fL (83.0-100.0); Mean Platelet Volume 11.2 fL (9.4-12.4); Monocytes # 0.6 K/mcL (0.0-1.3); Monocytes % 7.2 %; Neutrophils # 5.6 K/mcL (1.6-8.9); Platelet Count 232 K/mcL (140-400); Red Blood Count 3.47 M/mcL (4.19-5.50); Red Cell Distribution Width 14.4 % (11.5-14.5); White Blood Count 7.6 K/mcL (4.3-11.1)
[2019-05-19 07:53] LABS: Calcium 7.5 mg/dL (8.6-10.3); Magnesium 1.5 mg/dL (1.6-2.6); Phosphorous 2.7 mg/dL (2.7-4.5); Potassium 3.4 mEq/L (3.5-5.1)
[2019-05-19] MEDS ORDERED: Potassium Chloride Elixir 20 MEQ/15 ML UDC PO ONE (12:18)
[2019-05-19] MEDS ORDERED: traMADol 50 MG TABLET PO PRN (12:26)
--- NOTE | 2019-05-19 12:30 | Internal Med Progress Note ---
Hospitalist Progress Note - Encounter Date of Encounter: 05/19/19 Time of Encounter: 10:30 - Subjective Interval History: No major events overnight. Patient was seen this a.m. He denied fever, chills or night sweats. He has no nausea, vomiting or abdominal pain. Patient denied chest pain, shortness of breath or palpitation. Still complaining about back pain. - Exam Vitals: Temp Pulse Resp BP Pulse Ox 98.3 F 83 16 173/99 97 05/19/19 10:38 05/19/19 11:08 05/19/19 11:08 05/19/19 11:08 05/19/19 10:38 Exam: General:no acute distress HEENT: No erythema of posterior pharynx. No exudates. Lymphatics: No mandibular or cervical lymphadenopathy Cardiovascular: RRR. No murmurs. No chest wall tenderness. Lungs: Clear to auscelltation bilaterally. Regular chest rise. Abdomen: Non-tender. No rebound or gaurding. Nl bowel sounds. Extremities: No edema. 2+ pulses radial and pedal pulses Skin: No rahses, abrasions, or contusions. Nl cap refill. Psych: Poor attention but A&Ox3 once aroused Neuro: [place] agent II-XII intact. 5/5 strength. Sensation to light touch and pinprick intact. asterixis present - Assessment and Plan (1) Acute renal failure Current Visit: Yes Status: Acute (2) Electrolyte abnormality Current Visit: Yes Status: Acute (3) CKD (chronic kidney disease) stage 3, GFR 30-59 ml/min Current Visit: Yes Status: Chronic (4) Encephalopathy Current Visit: Yes Status: Resolved (5) Frequent falls Current Visit: Yes Status: Resolved - Summary of Assessment and Plan Summary of Assessment and Plan: 63-year-old male with history of CT the stage III, chronic back pain with unknown creatinine baseline who was transferred to the hospital due to acute encephalopathy and renal failure. ERI on CKD: Creatinine improving, Likely from dehyration and NSAIDs. UA is negative. Urology is following, keep Wan and Flomax, follow-up outpatient for voiding trial. Continue Flomax. UO IS 4.8L yesterday. Continue with IV fluids. Check BMP tomorrow Chronic back pain: PT/OT is following, recommended rehab. will get X rays to r/o fractions. Tramadol for severe pain, Tylenol for mild to moderate pain. Electrolyte abnormalities: The patient given for potassium and magnesium. Check levels tomorrow. Troponin elevation: Likely secondary to his renal failure, type II events. Patient is asymptomatic. DVT prophylaxis: Heparin subcutaneous - Time Spent with Patient Total time spent is greater than 50% in coordination of care (as documented) at patient's floor/unit and/or counseling patient: Greater than 35 minutes Plan of Care Discussed with: patient Internal Medicine: Result - Labs CBC & Chem 7: 05/19/19 06:48 05/19/19 06:48 Labs: Short CBC 05/19/19 Range/Units 06:48 WBC 7.6 (4.3-11.1) K/mcL Hgb 10.1 L (12.9-16.9) g/dL Hct 30.6 L (37.5-50.1) % Plt Count 232 (140-400) K/mcL Neutrophils # 5.6 (1.6-8.9) K/mcL BMP 05/18/19 05/19/19 13:52 06:48 Sodium 136 Potassium 4.3 D 3.4 L Chloride 104 Carbon Dioxide 22 L BUN 39 H Creatinine 2.43 H Glucose 101 Calcium 7.5 L Consult Discharge Plan - Plan Referrals: NONE,PCP [Primary Care Provider] - (1) Acute renal failure Qualifiers: Acute renal failure type: unspecified Qualified Code(s): N17.9 - Acute kidney failure, unspecified
[2019-05-19] MEDS: Ondansetron ODT 4 MG TAB.RAPDIS SL PRN (16:07)
[2019-05-20] MEDS: *HR* Heparin 5,000 UNIT/ML VIAL SQ SCH ×2 (06:05→16:17)
[2019-05-20] MEDS: Acetaminophen 325 MG TABLET PO PRN (06:17)
[2019-05-20 06:51] LABS: Hematocrit 27.3 % (37.5-50.1); Mean Corpuscular Hemoglobin 28.5 pg (28.0-33.3); Mean Corpuscular Volume 86.4 fL (83.0-100.0); Mean Platelet Volume 10.7 fL (9.4-12.4); Platelet Count 280 K/mcL (140-400); Red Blood Count 3.16 M/mcL (4.19-5.50); Red Cell Distribution Width 13.8 % (11.5-14.5); Segmented Neutrophils % 74.3 %; White Blood Count 8.2 K/mcL (4.3-11.1)
[2019-05-20 06:52] LABS: Basophils % 0.1 %; Eosinophils % 0.2 %; Immature Granulocytes % 0.6 % (0-4); Lymphocytes # 1.3 K/mcL (0.6-4.6); Lymphocytes % 15.4 %; Monocytes # 0.8 K/mcL (0.0-1.3); Monocytes % 9.4 %; Neutrophils # 6.1 K/mcL (1.6-8.9)
[2019-05-20 07:10] LABS: Albumin 2.9 g/dL (3.5-5.7); Albumin/Globulin Ratio 1.2 (1.1-2.2); Bilirubin,Total 0.5 mg/dL (0.3-1.0); Calcium 7.6 mg/dL (8.6-10.3); Globulin 2.4 g/dL (2.4-3.5); Potassium 3.6 mEq/L (3.5-5.1); Total Protein 5.3 g/dL (6.4-8.9)
[2019-05-20] MEDS: amLODIPine 5 MG TABLET PO SCH (08:34)
[2019-05-20] MEDS: *HR* OxyCODONE/APAP 5/325 TABLET PO PRN ×2 (08:35→16:17)
--- NOTE | 2019-05-20 10:36 | Internal Med Progress Note ---
Hospitalist Progress Note - Encounter Date of Encounter: 05/20/19 Time of Encounter: 08:30 - Subjective Interval History: Patient was seen this morning, he reported that he feels better and his back pain is improving. He denied any chest pain, shortness of breath or palpitation. - Exam Vitals: Temp Pulse Resp BP Pulse Ox 98.5 F 63 16 186/94 96 05/20/19 07:47 05/20/19 07:47 05/20/19 07:47 05/20/19 07:47 05/20/19 07:47 Exam: General:no acute distress HEENT: No erythema of posterior pharynx. No exudates. Lymphatics: No mandibular or cervical lymphadenopathy Cardiovascular: RRR. No murmurs. No chest wall tenderness. Lungs: Clear to auscelltation bilaterally. Regular chest rise. Abdomen: Non-tender. No rebound or gaurding. Nl bowel sounds. Extremities: No edema. 2+ pulses radial and pedal pulses Skin: No rahses, abrasions, or contusions. Nl cap refill. Psych: Poor attention but A&Ox3 once aroused Neuro: planner internship II-XII intact. 5/5 strength. Sensation to light touch and pinprick intact. - Assessment and Plan (1) Acute renal failure Current Visit: Yes Status: Acute (2) Electrolyte abnormality Current Visit: Yes Status: Acute (3) CKD (chronic kidney disease) stage 3, GFR 30-59 ml/min Current Visit: Yes Status: Chronic (4) Encephalopathy Current Visit: Yes Status: Resolved (5) Frequent falls Current Visit: Yes Status: Resolved - Summary of Assessment and Plan Summary of Assessment and Plan: 63-year-old male with history of CT the stage III, chronic back pain with unknown creatinine baseline who was transferred to the hospital due to acute encephalopathy and renal failure. ERI on CKD: Creatinine improving, Unknown baseline. Likely from dehyration and NSAIDs. UA is negative. Urology is following, keep Wan and Flomax, follow-up outpatient for voiding trial. UO IS 1.1L yesterday. Continue with IV fluids. Check BMP tomorrow Chronic back pain: PT/OT is following, recommended rehab. X rays of the C/T/L spines with multiple degenerative changes but no fractures. Tramadol for severe pain, Tylenol for mild to moderate pain. F/U with spine surgeon as outpatient. HTN: uncontrolled, stopped his PO medications few years ago. Started on norvasc, continue to follow. Electrolyte abnormalities: replacement given for potassium and magnesium. Check levels tomorrow. Troponin elevation: Likely secondary to his renal failure, type II events. Patient is asymptomatic. DVT prophylaxis: Heparin subcutaneous Disposition: likely discharge tomorrow to SNF. - Time Spent with Patient Total time spent is greater than 50% in coordination of care (as documented) at patient's floor/unit and/or counseling patient: Internal Medicine: Result - Labs CBC & Chem 7: 05/20/19 06:35 05/20/19 06:35 Labs: Short CBC 05/20/19 Range/Units 06:35 WBC 8.2 (4.3-11.1) K/mcL Hgb 9.0 L (12.9-16.9) g/dL Hct 27.3 L (37.5-50.1) % Plt Count 280 (140-400) K/mcL Neutrophils # 6.1 (1.6-8.9) K/mcL BMP 05/20/19 06:35 Sodium 136 Potassium 3.6 Chloride 108 H Carbon Dioxide 22 L BUN 23 Creatinine 1.70 H Glucose 102 Calcium 7.6 L Liver Function 05/20/19 Range/Units 06:35 Total Bilirubin 0.5 (0.3-1.0) mg/dL AST 14 (13-39) Units/L ALT 25 (7-52) Units/L Alkaline Phosphatase 55 (34-104) Units/L Albumin 2.9 L (3.5-5.7) g/dL - Impressions Impressions Lumbar Spine X-Ray 05/19/19 19:22 IMPRESSION: There is suggested multifocal vertebral body anomalies Degenerative changes are noted throughout the spine without acute osseous abnormality There is no gross instability in the cervical spine with limited flexion and limited extension Nonspecific multifocal small-bowel distention D/ / Brandan Goncalves / Brandan Goncalves Interpreting Provider: Brandan Goncalves Spine Flexion/Extension X-Ray 05/19/19 19:22 IMPRESSION: There is suggested multifocal vertebral body anomalies Degenerative changes are noted throughout the spine without acute osseous abnormality There is no gross instability in the cervical spine with limited flexion and limited extension Nonspecific multifocal small-bowel distention D/ / Brandan Goncalves / Brandan Goncalves Interpreting Provider: Brandan Goncalves Thoracic Spine X-Ray 05/19/19 19:22 IMPRESSION: There is suggested multifocal vertebral body anomalies Degenerative changes are noted throughout the spine without acute osseous abnormality There is no gross instability in the cervical spine with limited flexion and limited extension Nonspecific multifocal small-bowel distention D/ / Brandan Goncalves / Brandan Goncalves Interpreting Provider: Brandan Goncalves Consult Discharge Plan - Plan Referrals: NONE,PCP [Primary Care Provider] - (1) Acute renal failure Qualifiers: Acute renal failure type: unspecified Qualified Code(s): N17.9 - Acute kidney failure, unspecified
[2019-05-21 04:27] LABS: BUN/Creatinine Ratio 11 (6-26); Blood Urea Nitrogen 15 mg/dL (8-23); Calcium 7.3 mg/dL (8.6-10.3); Carbon Dioxide 19 mEq/L (23-29); Chloride 106 mEq/L (98-107); Glucose 108 mg/dL (70-105); Magnesium 1.4 mg/dL (1.6-2.6); Osmolality,Calculated 277 (280-300); Phosphorous 1.7 mg/dL (2.7-4.5); Potassium 3.1 mEq/L (3.5-5.1); Sodium 133 mEq/L (136-145); eGFR For African Americans > 60 (> 60); eGFR For Non-African Americans 52 (> 60)
[2019-05-21] MEDS: *HR* Heparin 5,000 UNIT/ML VIAL SQ SCH ×2 (05:39→17:40)
[2019-05-21] MEDS ORDERED: Potassium Chloride Elixir 20 MEQ/15 ML UDC PO ONE (07:25)
[2019-05-21] MEDS: amLODIPine 5 MG TABLET PO SCH (08:54)
[2019-05-21] MEDS: *HR* OxyCODONE/APAP 5/325 TABLET PO PRN ×3 (08:58→21:00)
[2019-05-21] MEDS ORDERED: Potassium Chloride 40 MEQ, Lidocaine 1% 2 ML in 0.9 % Sodium Chloride 500 ML IVPB ONE (14:21)
--- NOTE | 2019-05-21 15:53 | Physician Discharge Referral ---
ExtendedCare Referral Info Transfer To: SNF Provider in Charge after Transfer: PCP Institutional Level of Care: Skilled - Diagnosis (1) Acute renal failure Priority: Primary Status: Resolved (2) Electrolyte abnormality Priority: Secondary Status: Acute (3) CKD (chronic kidney disease) stage 3, GFR 30-59 ml/min Priority: Secondary Status: Chronic (4) Encephalopathy Priority: Secondary Status: Resolved (5) Frequent falls Priority: Secondary Status: Resolved Prognosis: Good - Transfer Medications Home Medications: No Known Home Drugs 05/16/19 [History] Allergies/Adverse Reactions: Allergy/AdvReac Type Severity Reaction Status Date / Time No Known Allergies Allergy Verified 05/16/19 10:36 - Respiratory Orders Smoking Cessation: Smoking cessation has been advised. For more information, call the [employer] Tobacco Quit Line at 4-114-ECYR-NOW. - Lab Orders Lab Orders: Other (include drug levels w/frequency) (BMP, Mag, Po4) - Mobility Orders Ambulate - Rehabiliation Orders Rehab Potential: Good Rehab Orders: Evaluation for Physical Therapy, Evaluation for Occupational Therapy - Diet Orders Renal CERTIFICATION: I certify that the transfer of the above named patient to an Extended Care Facility is necessary for the continuing treatment of the diagnosis listed. The above information is true and accurate reflection of patient's current condition. Confidential - Redisclosure prohibited without a patient's written consent.
--- NOTE | 2019-05-21 16:53 | Internal Med Progress Note ---
Hospitalist Progress Note - Encounter Date of Encounter: 05/21/19 Time of Encounter: 08:25 - Subjective Interval History: No major events overnight. Patient was seen this a.m. He denied fever, chills or night sweats. He has no nausea, vomiting or abdominal pain. Patient denied chest pain, shortness of breath or palpitation. - Exam Vitals: Temp Pulse Resp BP Pulse Ox 98.9 F 72 16 169/88 96 05/21/19 10:54 05/21/19 10:54 05/21/19 10:54 05/21/19 10:54 05/21/19 10:54 Exam: General:no acute distress HEENT: No erythema of posterior pharynx. No exudates. Lymphatics: No mandibular or cervical lymphadenopathy Cardiovascular: RRR. No murmurs. No chest wall tenderness. Lungs: Clear to auscelltation bilaterally. Regular chest rise. Abdomen: Non-tender. No rebound or gaurding. Nl bowel sounds. Extremities: No edema. 2+ pulses radial and pedal pulses Skin: No rahses, abrasions, or contusions. Nl cap refill. Psych: Poor attention but A&Ox3 once aroused Neuro: magneto electrician II-XII intact. 5/5 strength. Sensation to light touch and pinprick intact. - Assessment and Plan (1) Acute renal failure Current Visit: Yes Status: Resolved (2) Electrolyte abnormality Current Visit: Yes Status: Acute (3) CKD (chronic kidney disease) stage 3, GFR 30-59 ml/min Current Visit: Yes Status: Chronic (4) Encephalopathy Current Visit: Yes Status: Resolved (5) Frequent falls Current Visit: Yes Status: Resolved - Summary of Assessment and Plan Summary of Assessment and Plan: 63-year-old male with history of CT the stage III, chronic back pain with unk nown creatinine baseline who was transferred to the hospital due to acute encephalopathy and renal failure. ERI on CKD: Creatinine improving, Unknown baseline. Likely from dehyration and NSAIDs. UA is negative. Urology is following, keep Wan and Flomax, follow-up outpatient for voiding trial. UO IS 1.1L yesterday. Continue with IV fluids. Check BMP tomorrow Chronic back pain: PT/OT is following, recommended rehab. X rays of the C/T/L spines with multiple degenerative changes but no fractures. Tramadol for severe pain, Tylenol for mild to moderate pain. F/U with spine surgeon as outpatient. HTN: uncontrolled, stopped his PO medications few years ago. increase to norvasc 10 mg Electrolyte abnormalities: replacement given for potassium, PO4 and magnesium. Check levels tomorrow. Troponin elevation: Likely secondary to his renal failure, type II events. Patient is asymptomatic. DVT prophylaxis: Heparin subcutaneous Disposition: likely discharge tomorrow to SNF. - Time Spent with Patient Total time spent is greater than 50% in coordination of care (as documented) at patient's floor/unit and/or counseling patient: Plan of Care Discussed with: patient Internal Medicine: Result - Labs CBC & Chem 7: 05/20/19 06:35 05/21/19 03:48 Labs: BMP 05/21/19 03:48 Sodium 133 L Potassium 3.1 L Chloride 106 Carbon Dioxide 19 L BUN 15 Creatinine 1.38 H Glucose 108 H Calcium 7.3 L Consult Discharge Plan - Plan Referrals: NONE,PCP [Primary Care Provider] - (1) Acute renal failure Qualifiers: Acute renal failure type: unspecified Qualified Code(s): N17.9 - Acute kidney failure, unspecified
[2019-05-21] MEDS: Ondansetron ODT 4 MG TAB.RAPDIS SL PRN (21:01)
[2019-05-21] MEDS ORDERED: tiZANidine 4 MG TABLET PO ONE (23:13)
[2019-05-22] MEDS: *HR* OxyCODONE/APAP 5/325 TABLET PO PRN ×3 (05:23→18:11)
[2019-05-22] MEDS: *HR* Heparin 5,000 UNIT/ML VIAL SQ SCH ×2 (05:24→17:33)
[2019-05-22 07:02] LABS: Hemoglobin 8.2 g/dL (12.9-16.9); Mean Corpuscular HGB Conc 32.8 g/dL (31.6-35.5); Mean Corpuscular Hemoglobin 28.9 pg (28.0-33.3); Mean Platelet Volume 10.5 fL (9.4-12.4); Platelet Count 370 K/mcL (140-400); Red Blood Count 2.84 M/mcL (4.19-5.50); Red Cell Distribution Width 13.5 % (11.5-14.5); White Blood Count 6.9 K/mcL (4.3-11.1)
[2019-05-22 07:19] LABS: BUN/Creatinine Ratio 11 (6-26); Blood Urea Nitrogen 14 mg/dL (8-23); Calcium 7.9 mg/dL (8.6-10.3); Carbon Dioxide 19 mEq/L (23-29); Chloride 105 mEq/L (98-107); Glucose 94 mg/dL (70-105); Magnesium 1.9 mg/dL (1.6-2.6); Osmolality,Calculated 276 (280-300); Phosphorous 2.2 mg/dL (2.7-4.5); Potassium 3.7 mEq/L (3.5-5.1); Sodium 133 mEq/L (136-145); eGFR For African Americans > 60 (> 60); eGFR For Non-African Americans 57 (> 60)
[2019-05-22] MEDS ORDERED: Potassium Phosphate 44 MEQ in 0.9 % Sodium Chloride 250 ML IVPB ONE (07:46)
[2019-05-22] MEDS: amLODIPine 5 MG TABLET PO SCH (08:51)
[2019-05-22] MEDS: Acetaminophen 325 MG TABLET PO PRN (08:51)
--- NOTE | 2019-05-22 16:45 | Internal Med Progress Note ---
Hospitalist Progress Note - Encounter Date of Encounter: 05/22/19 Time of Encounter: 10:00 - Subjective Interval History: No new events overnight. Patient had back pain that bothered him when he was lying flat, improved with lying on his side. - Exam Vitals: Temp Pulse Resp BP Pulse Ox 98.9 F 68 17 140/91 98 05/22/19 15:22 05/22/19 15:22 05/22/19 15:22 05/22/19 15:22 05/22/19 15:22 Exam: General:no acute distress HEENT: No erythema of posterior pharynx. No exudates. Lymphatics: No mandibular or cervical lymphadenopathy Cardiovascular: RRR. No murmurs. No chest wall tenderness. Lungs: Clear to auscelltation bilaterally. Regular chest rise. Abdomen: Non-tender. No rebound or gaurding. Nl bowel sounds. Extremities: No edema. 2+ pulses radial and pedal pulses Skin: No rahses, abrasions, or contusions. Nl cap refill. Psych: Poor attention but A&Ox3 once aroused Neuro: power and recovery supervisor II-XII intact. 5/5 strength. Sensation to light touch and pinprick intact. - Assessment and Plan (1) Acute renal failure Current Visit: Yes Status: Resolved (2) Electrolyte abnormality Current Visit: Yes Status: Acute (3) CKD (chronic kidney disease) stage 3, GFR 30-59 ml/min Current Visit: Yes Status: Chronic (4) Encephalopathy Current Visit: Yes Status: Resolved (5) Frequent falls Current Visit: Yes Status: Resolved - Summary of Assessment and Plan Summary of Assessment and Plan: 63-year-old male with history of CT the stage III, chronic back pain with unknown creatinine baseline who was transferred to the hospital due to acute encephalopathy and renal failure. ERI on CKD: Creatinine improving, Unknown baseline. Likely from dehyration and NSAIDs. UA is negative. Urology is following, keep Wan and Flomax, follow-up outpatient for voiding trial. UO IS 1.1L yesterday. Continue with IV fluids. Check BMP tomorrow Chronic back pain: PT/OT is following, recommended rehab. X rays of the C/T/L spines with multiple degenerative changes but no fractures. Tramadol for severe pain, Tylenol for mild to moderate pain. F/U with spine surgeon as outpatient. HTN: uncontrolled, stopped his PO medications few years ago. increase to norvasc 10 mg Electrolyte abnormalities: replacement given for PO4 . Check levels tomorrow. Troponin elevation: Likely secondary to his renal failure, type II events. Patient is asymptomatic. DVT prophylaxis: Heparin subcutaneous Disposition: likely discharge tomorrow to SNF. - Time Spent with Patient Total time spent is greater than 50% in coordination of care (as documented) at patient's floor/unit and/or counseling patient: Plan of Care Discussed with: patient Internal Medicine: Result - Labs CBC & Chem 7: 05/22/19 06:14 05/22/19 06:14 Labs: Short CBC 05/22/19 Range/Units 06:14 WBC 6.9 (4.3-11.1) K/mcL Hgb 8.2 L (12.9-16.9) g/dL Hct 25.0 L (37.5-50.1) % Plt Count 370 (140-400) K/mcL BMP 05/22/19 06:14 Sodium 133 L Potassium 3.7 Chloride 105 Carbon Dioxide 19 L BUN 14 Creatinine 1.27 Glucose 94 Calcium 7.9 L Consult Discharge Plan - Plan Referrals: NONE,PCP [Primary Care Provider] - (1) Acute renal failure Qualifiers: Acute renal failure type: unspecified Qualified Code(s): N17.9 - Acute kidney failure, unspecified
[2019-05-22] MEDS: Ondansetron ODT 4 MG TAB.RAPDIS SL PRN (18:23)
[2019-05-22] MEDS ORDERED: tiZANidine 4 MG TABLET PO ONE (20:18)
[2019-05-23] MEDS: *HR* OxyCODONE/APAP 5/325 TABLET PO PRN ×3 (00:07→11:22)
[2019-05-23] MEDS: *HR* Heparin 5,000 UNIT/ML VIAL SQ SCH (05:17)
[2019-05-23 06:05] LABS: BUN/Creatinine Ratio 10 (6-26); Blood Urea Nitrogen 12 mg/dL (8-23); Calcium 7.7 mg/dL (8.6-10.3); Carbon Dioxide 20 mEq/L (23-29); Chloride 107 mEq/L (98-107); Glucose 90 mg/dL (70-105); Magnesium 1.5 mg/dL (1.6-2.6); Osmolality,Calculated 277 (280-300); Phosphorous 2.4 mg/dL (2.7-4.5); Potassium 3.8 mEq/L (3.5-5.1); Sodium 134 mEq/L (136-145); eGFR For African Americans > 60 (> 60); eGFR For Non-African Americans 59 (> 60)
[2019-05-23] MEDS: amLODIPine 5 MG TABLET PO SCH (07:56)
[2019-05-23 10:41] VITALS: BP 121/73
--- NOTE | 2019-05-23 11:06 | Discharge Summary ---
- NOTES TO OUTPATIENT PROVIDER Notes to Outpatient Provider: Patient was admitted for encephalopathy was found to have urinary retention with acute kidney injury. Urology was consulted and he had Wan placed a follow-up with urology as outpatient for voiding trial. Continue Flomax. He also has a chronic back pain with severe osteoarthritis changes and may benefit from spinal surgery consult as outpatient. Date of Encounter: 05/23/19 Time of Encounter: 09:40 - Discharge Diagnosis (1) Acute renal failure Priority: Primary Status: Resolved Qualifiers: Acute renal failure type: unspecified Qualified Code(s): N17.9 - Acute kidney failure, unspecified (2) Electrolyte abnormality Priority: Secondary Status: Resolved (3) CKD (chronic kidney disease) stage 3, GFR 30-59 ml/min Priority: Secondary Status: Chronic (4) Encephalopathy Priority: Secondary Status: Resolved (5) Frequent falls Priority: Secondary Status: Resolved Hospital course: Mr. Pickett is a 63 year old male with history of CKD stage III, HTN who was managed in the hospital for urinary retention and acute kidney injury. Urology was consulted and patient was started on Flomax and had indwelling Wan catheter that will stay in place until he follows as outpatient. He was also managed with IV fluids with improvement in his kidney function. Patient had a chronic back pain and x-rays of the cervical, thoracic and lumbar spine did not reveal any acute fracture however severe degenerative changes. Follow-up with spine surgeon is recommended as outpatient and appointment was scheduled. Today, patient is clinically and hemodynamically stable. He will be discharged to rehabilitation in stable condition. Discharge discussed with: patient - Time Spent with Patient Total time spent providing and/or coordinating discharge services: 42 minutes - Discharge Medications Prescriptions: New Docusate [Colace] 100 mg PO BID PRN #60 capsule PRN Reason: Constipation Tamsulosin [Flomax] 0.4 mg PO DAILY #30 capsule amLODIPine [Norvasc] 10 mg PO DAILY #30 tablet OxyCODONE/APAP 5/325 [Percocet 5/325 MG] 1 each PO Q8HR PRN 7 Days #21 tablet PRN Reason: Severe Pain Home Medications: Docusate [Colace] 100 mg PO BID PRN #60 capsule 05/23/19 [Rx] OxyCODONE/APAP 5/325 [Percocet 5/325 MG] 1 each PO Q8HR PRN 7 Days #21 tablet 05/23/19 [Rx] Tamsulosin [Flomax] 0.4 mg PO DAILY #30 capsule 05/23/19 [Rx] amLODIPine [Norvasc] 10 mg PO DAILY #30 tablet 05/23/19 [Rx] Allergies/Adverse Reactions: Allergy/AdvReac Type Severity Reaction Status Date / Time No Known Allergies Allergy Verified 05/16/19 10:36 Date of admission: 05/18/19 15:23 Primary care physician: PCP NONE Consults: 05/16/19 03:19 Consult to Coremaker Supervisor [CONS] Routine Reason for SW Consult: Patient lives home alone and suffering from multiple falls and confusion 05/16/19 09:21 Consult to Nephrology [CONS] Routine Consulting Provider: Kidney Michelle/ZEV/JEAN/ANEL Reason for Consult: acute renal failure Call Completed: Yes 05/16/19 09:36 Consult to Physical Therapy [CONS] Routine Comment: Evaluate, develop and implement POC Reason for Consult: Deconditioning Does patient have active BEDREST order?: No Is patient medically & hemodynamically stable?: Yes Patient assessed for mobility or mobilized this visit?: No 05/16/19 09:57 Consult to Urology [CONS] Routine Consulting Provider: Urology Michelle Reason for Consult: ERI secondary obstructive process Call Completed: Yes 05/17/19 11:06 Consult to Occupational Therapy [CONS] Routine Comment: Evaluate, develop and implement POC Reason for Consult: weakness Does patient have active BEDREST order?: No Is patient medically & hemodynamically stable?: Yes Patient assessed for mobility or mobilized this visit?: No - Constitutional Vitals: Temp Pulse Resp BP Pulse Ox 98.1 F 67 17 121/73 97 05/23/19 10:40 05/23/19 10:40 05/23/19 10:40 05/23/19 10:40 05/23/19 10:40 Exam: General:no acute distress HEENT: No erythema of posterior pharynx. No exudates. Lymphatics: No mandibular or cervical lymphadenopathy Cardiovascular: RRR. No murmurs. No chest wall tenderness. Lungs: Clear to auscelltation bilaterally. Regular chest rise. Abdomen: Non-tender. No rebound or gaurding. Nl bowel sounds. Extremities: No edema. 2+ pulses radial and pedal pulses Skin: No rahses, abrasions, or contusions. Nl cap refill. Psych: Poor attention but A&Ox3 once aroused Neuro: glazing department supervisor II-XII intact. 5/5 strength. Sensation to light touch and pinprick intact. - Patient Status Disposition: Transfer SNF Condition: Good Functional capacity at discharge: independent ambulation Overall status at discharge: patient is back to baseline - Discharge Instructions Follow Up With: NONE,PCP [Primary Care Provider] - Manuel Amaya MD [Partnered Physician] - Brandan Cohen Jr, MD [Partnered Physician] - - Diet and Activity Activity: as per physical therapy Diet: low salt diet
== END 2019-05-23 12:38 | DRG 682 ==
LOC: 2ANU → SUATTDRO 05-18 15:23
PROVIDERS: ADMIT Internal Medicine; ATTEND Internal Medicine